=== PATIENT | male | born 1990 | race Caucasian/White ===

== ENCOUNTER 2018-10-15 22:59 | Emergency (ER) | payer OTHER, BC ==
[~2018-10-15] VITALS: Ht 165.1 cm; Wt 113.6 kg
[2018-10-15 23:00] VITALS: BP 161/96
[2018-10-15] MEDS ORDERED: DICL75TA PO (23:54)
--- NOTE | 2018-10-16 07:32 | REP ---
Clinical: Left shoulder injury . Technique: Internal rotation, external rotation, and Y view. Findings: No acute fracture or dislocation. The acromioclavicular and glenohumeral joints are intact. No periarticular calcifications or degenerative changes are appreciated. Sub acromial space is normal. Surrounding soft tissues are unremarkable. Impression: Normal age-appropriate left shoulder radiographs. Electronically Signed by Kade Cloud MD 10/16/2018 07:23 A
== END 2018-10-16 00:08 | disposition home or self-care (01) ==
LOC: M ED 22:59
DX: S46.912A Strain of unspecified muscle, fascia and tendon at shoulder and upper arm level, left arm, initial encounter (principal); W00.0XXA Fall on same level due to ice and snow, initial encounter; Y92.89 Other specified places as the place of occurrence of the external cause; Y99.0 Civilian activity done for income or pay; E11.9 Type 2 diabetes mellitus without complications; F17.210 Nicotine dependence, cigarettes, uncomplicated

== ENCOUNTER 2021-06-24 17:08 | Inpatient (IN) | payer OTHER, SELFPAY ==
[~2021-06-24] VITALS: Ht 167.6 cm; Wt 109.9 kg
[~2021-06-24 17:08] MED LIST: ACET-683 PO; DICL75TA PO; METF500T13
[2021-06-24 18:54] LABS: BASO # 0.1 10^3/uL (0.0-0.2); BASO % 0.5 % (0.0-1.0); EOS % 0.1 % (0.0-3.0); HEMATOCRIT 43.3 % (42.0-52.0); HEMOGLOBIN 15.8 g/dl (13.5-17.5); LYMPH # 1.4 10^3/uL (1.5-5.0); LYMPH % 10.2 % (24.0-44.0); MEAN CORPUSCULAR HEMOGLOBIN 30.4 pg (27.0-33.0); MEAN CORPUSCULAR HGB CONC 36.5 g/dl (32.0-36.5); MEAN CORPUSCULAR VOLUME 83.3 fl (80.0-96.0); MONO # 1.1 10^3/uL (0.0-0.8); MONO % 8.4 % (2.0-8.0); NEUTROPHILS # 10.9 10^3/uL (1.5-8.5); NEUTROPHILS % 80.1 % (36.0-66.0); PLATELET COUNT, AUTOMATED 264 10^3/uL (150-450); WHITE BLOOD COUNT 13.6 10^3/uL (4.0-10.0)
[2021-06-24 19:36] LABS: RSV AMPLIFICATION NEGATIVE (NEGATIVE)
[2021-06-24 21:01] LABS: ALBUMIN 3.4 GM/DL (3.2-5.2); ALT/SGPT 53 U/L (12-78); BILIRUBIN,TOTAL 1.2 MG/DL (0.2-1.0); BLOOD UREA NITROGEN 9 MG/DL (7-18); CALCIUM LEVEL 8.7 MG/DL (8.5-10.1); CARBON DIOXIDE LEVEL 28 MEQ/L (21-32); CHLORIDE LEVEL 92 MEQ/L (98-107); CREATININE FOR GFR 1.03 MG/DL (0.70-1.30); GLOMERULAR FILTRATION RATE > 60.0 (>60); GLUCOSE, FASTING 381 MG/DL (70-100); POTASSIUM SERUM 4.2 MEQ/L (3.5-5.1); SODIUM LEVEL 128 MEQ/L (136-145)
[2021-06-24] MEDS ORDERED: NS 1,000 ML IV ONE ×2 (21:20→23:30)
[2021-06-24 21:38] LABS: ACETONE/KETONE 1.85 MG/DL (<2.81); C REACTIVE PROTEIN QUANTITATIV 9.56 MG/DL (0.00-0.30)
[2021-06-24] MEDS ORDERED: HumaLOG INSULIN (NovoLOG) PER UNIT SC ONE (21:45)
[2021-06-24 21:56] LABS: OSMOLALITY SERUM 286 MOSM/KG (275-295)
[2021-06-24 22:01] LABS: ERYTHROCYTE SEDIMENTATION RATE 15 mm/hr (0-15)
[2021-06-24 22:19] LABS: HEMOGLOBIN A1c 12.5 %
--- NOTE | 2021-06-24 22:45 | REPVR ---
PROCEDURE INFORMATION: Exam: XR Left Foot Exam date and time: 06/24/2021 9:51 PM Age: 30 years old Clinical indication: Pain; Foot; Left; Patient HX: Wound in area of dorsal 3-4 mp joint area; Additional info: Wound infection, diabetes mellitus TECHNIQUE: Imaging protocol: XR Left foot. Views: 3 or more views. COMPARISON: No relevant prior studies available. FINDINGS: Bones/joints: There is a posterior calcaneal spur at the insertion of the Achilles tendon, which is compatible with a left Achilles enthesopathy. There is no fracture, dislocation, or bony destructive changes involving the left foot. The joint spaces and alignment are maintained. No arthropathy is noted. Incidental note is made of a well corticated accessory ossicle lateral to the cuboid, which represents an os peroneum. Soft tissues: There is soft tissue swelling along the dorsal aspect of the left forefoot. No soft tissue gas or radiopaque foreign body is identified in the left foot. IMPRESSION: 1. No radiographic findings to suggest osteomyelitis in the left foot. 2. Soft tissue swelling along the dorsal aspect of the left forefoot. Electronically signed by: Rory Iyer On 06/24/2021 22:45:18 PM
[2021-06-24] MEDS ORDERED: ACETAMINOPHEN 325 MG TAB PO ONE (22:55)
[2021-06-24] MEDS ORDERED: BACTRIM 160MG/800MG DS TAB PO ONE (23:10)
[2021-06-25] MEDS ORDERED: VANCOMYCIN HCL 2,000 MG in IV FLUID PLACE HOLDER 1 EA IV ONE (01:05)
[2021-06-25] MEDS ORDERED: HOME MED LIST COMPLETE! XX SCH (01:10)
[2021-06-25] MEDS ORDERED: MAALOX 30 ML SUSP *UDC PO PRN (01:25)
[2021-06-25] MEDS ORDERED: ACETAMINOPHEN TAB 650MG DOSE (2X325MG) PO PRN (01:25)
[2021-06-25] MEDS ORDERED: MOM 30ML SUSPENSION UDC PO PRN (01:25)
--- NOTE | 2021-06-25 01:28 | HPEPDOC ---
[facility] [place] Date of Admission Jun 25, 2021 Date of Service: Jun 25, 2021 History and Physical CHIEF COMPLAINT: L foot pain and swelling HISTORY OF PRESENT ILLNESS: 30 yo M with with no rib no reported past medical history presented to the ER complaining of a 2-day worsening pain and swelling of his left foot along with an ulcer between the fourth and third toes of the left foot. Patient states that he has been having subjective fevers and chills at home. He attributed the swelling and pain to athlete's foot as he has been working outside and sweating into his boot. Patient is febrile at a fever of 100.2. He is leukocytosis of 13.6. ESR is 15. CRP is 9.56. Patient has blood glucose of 381 with a corrected sodium of 132. Patient has a new diagnosis of diabetes in which he was not aware. X-ray of the foot does not show evidence for osteomyelitis. Venous duplex of the left leg shows no DVT. Blood cultures were drawn and wound culture was obtained. Patient was started on vancomycin and ceftriaxone. Patient be admitted for management of cellulitis and diabetic foot ulcer secondary to undiagnosed diabetes. PAST MEDICAL HISTORY: Undiagnosed type 2 diabetes mellitus PAST SURGICAL HISTORY: No prior reported surgical history SOCIAL HISTORY: Patient denies smoking Patient denies etoh use Patient denies illicit drug use FAMILY HISTORY: Mother: Has diabetes now diet controlled ALLERGIES: Please see below. REVIEW OF SYSTEMS: 10 point ROS conducted, relevant findings are noted in the HPI. HOME MEDICATIONS: Please see below. PHYSICAL EXAMINATION: VITAL SIGNS: please see below General: NAD, comfortable HEENT: PERRLA, EOMI, sclerae clear Neck: supple, normal ROM, no JVD Respiratory: lungs CTAB, no wheeze, no rales, no crackles CVS: RRR, normal S1, S2, no murmurs Abdo: soft, no masses, no hepatosplenomegaly, BS+, no rebound tenderness Extremities: no edema, Morton pedis and posterior tibial pulses are intact 2+ bilaterally. No cyanosis, cap refill less than 2 seconds. MSK: no joint deformities, normal ROM. Shallow wound with slight purulence noted between toes 3 and 4 of the left foot. Surrounding cellulitis demarcated with skin marker. Neuro: no focal neuro deficits, moving all 4 extremities, CN2-12 intact. Strength 5/5 in all 4 extremities. No nystagmus. Psych: calm, cooperative, AAO x 3 LABORATORY DATA: See below. IMAGING: Left foot x-ray on 06/24/2021: 1. No radiographic findings to suggest osteomyelitis in the left foot. 2. Soft tissue swelling along the dorsal aspect of the left forefoot. Venous duplex of the left lower extremity on 06/25/2021: IMPRESSION: No deep vein thrombosis in the veins imaged in the left lower extremity. MICROBIOLOGY: Please see below. ASSESSMENT: Plantar male with undiagnosed type 2 diabetes presents with left foot diabetic ulcer. Vancomycin and ceftriaxone . PLAN: Left foot diabetic ulcer: Foot x-ray does not suggest osteomyelitis. Elevated CRP. Start on vancomycin and ceftriaxone. Skin demarcated with skin marker. Trend of anterior markers. Trend CBC. Type 2 diabetes, uncontrolled: Patient unaware of diagnosis until today. A1c 12.5. Sliding scale before meals and at bedtime. FSBS before meals and at bedtime. Dietitian eval ordered. Diabetic teaching ordered. DVT prophylaxis SCDs and teds. Dispo: Admission expected to last 2 midnights. Vital Signs Vital Signs Date Time Temp Pulse Resp B/P (MAP) Pulse Ox O2 Delivery O2 Flow Rate FiO2 06/24/21 23:08 116 94 06/24/21 21:06 100.2 20 143/70 (94) Room Air Laboratory Data Labs 24H Laboratory Tests 2 06/24/21 18:42: Immature Granulocyte % (Auto) 0.7, Neutrophils (%) (Auto) 80.1H, Lymphocytes (%) (Auto) 10.2L, Monocytes (%) (Auto) 8.4H, Eosinophils (%) (Auto) 0.1, Basophils (%) (Auto) 0.5, Neutrophils # (Auto) 10.9H, Lymphocytes # (Auto) 1.4L, Monocytes # (Auto) 1.1H, Eosinophils # (Auto) 0.0, Basophils # (Auto) 0.1, Nucleated Red Blood Cells % (auto) 0.0, Erythrocyte Sedimentation Rate 15, Anion Gap 8, Glomerular Filtration Rate > 60.0, Estimated Mean Plasma Glucose 312H, Hemoglobin A1c 12.5, Osmolality 286, Calcium Level 8.7, Total Bilirubin 1.2H, Aspartate Amino Transf (AST/SGOT) 34, Alanine Aminotransferase (ALT/SGPT) 53, Alkaline Phosphatase 105, C-Reactive Protein, Quantitative 9.56H, Total Protein 8.0, Albumin 3.4, Albumin/Globulin Ratio 0.7, B-Hydroxybutyrate 1.85, Coronavirus (COVID-19)(PCR) NEGATIVE, Influenza Type A (RT-PCR) NEGATIVE, Influenza Type B (RT-PCR) NEGATIVE, Respiratory Syncytial Virus (PCR) NEGATIVE 06/24/21 21:34: Urine Color YELLOW, Urine Appearance CLEAR, Urine pH 6.0, Urine Specific [place] 1.040, Urine Protein 2+H, Urine Glucose (UA) 3+H, Urine Ketones TRACEH, Urine Blood 1+H, Urine Nitrite NEGATIVE, Urine Bilirubin NEGATIVE, Urine Urobilinogen 0.2, Urine Leukocyte Esterase NEGATIVE, Urine WBC (Auto) 1, Urine RBC (Auto) 2, Urine Hyaline Casts (Auto) 0, Urine Bacteria (Auto) NEGATIVE, Urine Squamous Epithelial Cells 0, Urine Sperm (Auto) 06/24/21 22:37: Bedside Glucose (Misc Panel) 289H 06/24/21 23:22: Bedside Glucose (Misc Panel) 288H 06/25/21 01:22: Bedside Glucose (Misc Panel) 242H CBC/BMP Laboratory Tests 06/24/21 18:42 Microbiology Microbiology 06/24/21 Wound Culture, Received Pending Home Medications No Active Prescriptions or Reported Meds Allergies Coded Allergies: No Known Allergies (Unverified , 10/15/18) A-FIB/CHADSVASC A-FIB History Current/History of A-Fib/PAF?: No EMMANUELLE FRAIRE MD Jun 25, 2021 01:28
[2021-06-25] MEDS ORDERED: GLUCAGON INJ 1MG VIAL SC PRN (01:30)
[2021-06-25] MEDS ORDERED: DEXTROSE 50% 50 ML SYRINGE IV PRN (01:30)
[2021-06-25] MEDS ORDERED: GLUCOSE 4GM CHEW TABLET PO PRN (01:30)
[2021-06-25] MEDS ORDERED: VANCOMYCIN HCL 1,000 MG, VIAL MATE ADAPTER 1 EACH in NS 250 ML IV ONE ×2 (01:30→02:30)
[2021-06-25 02:25] VITALS: BP 134/90
--- NOTE | 2021-06-25 02:29 | REPVR ---
PROCEDURE INFORMATION: Exam: US Duplex Left Lower Extremity Veins, Limited Exam date and time: 06/25/2021 2:14 AM Age: 30 years old Clinical indication: Edema, localized; Lower extremity, left; Additional info: R/O dvt TECHNIQUE: Imaging protocol: Real-time Duplex ultrasound of the Left Lower Extremity with 2-D watson scale, color Doppler flow and spectral waveform analysis with image documentation. Limited exam focused on the left lower extremity veins. COMPARISON: CR Foot, complete LEFT 06/24/2021 9:09 PM FINDINGS: Left deep veins: Unremarkable. The common femoral, femoral, and popliteal veins are patent without thrombus. Normal compressibility, augmentation response and Doppler waveforms. The left femoral vein is duplicated in the left mid to distal thigh. According to the certified ophthalmic technologist's notes, the left calf veins were not well visualized secondary to the patient's body habitus. Left superficial veins: Unremarkable. Saphenofemoral junction is patent without thrombus. Right common femoral vein: The right common femoral vein is patent and demonstrates normal compressibility, normal color Doppler flow, and a normal spectral waveform response to augmentation. Lymph nodes: There is a 2.8 cm x 1.8 cm x 3.4 cm nonspecific left inguinal lymph node. IMPRESSION: No deep vein thrombosis in the veins imaged in the left lower extremity. Electronically signed by: Rory Iyer On 06/25/2021 02:28:51 AM
[2021-06-25] MEDS: cefTRIAXone SOD 1 GM in D5W MINI-BAG PLUS 50 ML IV SCH (04:25)
[2021-06-25 05:55] LABS: BASO # 0.1 10^3/uL (0.0-0.2); BASO % 0.6 % (0.0-1.0); EOS # 0.1 10^3/uL (0.0-0.5); EOS % 1.3 % (0.0-3.0); HEMATOCRIT 39.8 % (42.0-52.0); LYMPH # 1.9 10^3/uL (1.5-5.0); LYMPH % 22.6 % (24.0-44.0); MEAN CORPUSCULAR HEMOGLOBIN 29.6 pg (27.0-33.0); MEAN CORPUSCULAR HGB CONC 34.7 g/dl (32.0-36.5); MEAN CORPUSCULAR VOLUME 85.2 fl (80.0-96.0); MONO % 11.9 % (2.0-8.0); NEUTROPHILS # 5.3 10^3/uL (1.5-8.5); PLATELET COUNT, AUTOMATED 230 10^3/uL (150-450); RED BLOOD COUNT 4.67 10^6/uL (4.30-6.10); WHITE BLOOD COUNT 8.4 10^3/uL (4.0-10.0)
[2021-06-25 06:00] VITALS: BP 130/88
[2021-06-25 06:04] LABS: HEMOGLOBIN 13.8 g/dl (13.5-17.5)
[2021-06-25 06:30] LABS: ALBUMIN 2.7 GM/DL (3.2-5.2); ALT/SGPT 40 U/L (12-78); BILIRUBIN,TOTAL 0.6 MG/DL (0.2-1.0); BLOOD UREA NITROGEN 9 MG/DL (7-18); CALCIUM LEVEL 7.8 MG/DL (8.5-10.1); CARBON DIOXIDE LEVEL 26 MEQ/L (21-32); CHLORIDE LEVEL 99 MEQ/L (98-107); CREATININE FOR GFR 0.71 MG/DL (0.70-1.30); GLOMERULAR FILTRATION RATE > 60.0 (>60); GLUCOSE, FASTING 297 MG/DL (70-100); MAGNESIUM LEVEL 1.6 MG/DL (1.8-2.4); POTASSIUM SERUM 3.7 MEQ/L (3.5-5.1); SODIUM LEVEL 133 MEQ/L (136-145); TOTAL PROTEIN 6.8 GM/DL (6.4-8.2)
[2021-06-25 06:33] LABS: ERYTHROCYTE SEDIMENTATION RATE 57 mm/hr (0-15)
[2021-06-25] MEDS ORDERED: VANCOMYCIN HCL 1,000 MG, VIAL MATE ADAPTER 1 EACH in NS 250 ML IV SCH (09:00)
[2021-06-25] MEDS: HumaLOG INSULIN (NovoLOG) PER UNIT SC SCH ×4 (09:19→21:22)
[2021-06-25] MEDS: VANCOMYCIN HCL 750 MG, VIAL MATE ADAPTER 1 EACH in NS 250 ML IV SCH ×2 (10:09→17:50)
[2021-06-25] MEDS: VANCOMYCIN HCL 500 MG in D5W MINI-BAG PLUS 100 ML IV SCH ×2 (11:19→19:30)
[2021-06-25 14:00] VITALS: BP 143/92
[2021-06-25 21:49] VITALS: BP 126/78
[2021-06-26] MEDS: VANCOMYCIN HCL 1,000 MG, VIAL MATE ADAPTER 1 EACH in NS 250 ML IV SCH ×4 (02:14→20:07)
[2021-06-26] MEDS: cefTRIAXone SOD 1 GM in D5W MINI-BAG PLUS 50 ML IV SCH (04:47)
[2021-06-26 05:15] VITALS: BP 137/65
[2021-06-26] MEDS: HumaLOG INSULIN (NovoLOG) PER UNIT SC SCH ×4 (08:56→20:09)
[2021-06-26] MEDS ORDERED: INFLUENZA QUADRIVALENT PF VACCINE 0.5ML SYRINGE IM ONE (09:00)
[2021-06-26] MEDS ORDERED: LEVEMIR (INSULIN DETEMIR) 1 UNITS/0.01ML SC SCH (09:00)
[2021-06-26 14:00] VITALS: BP 122/78
--- NOTE | 2021-06-26 17:15 | IPNPDOC ---
Text Note Date of Service The patient was seen on 06/26/21. NOTE Subjective: No new acute events overnight Objective: GENERAL APPEARANCE: Obese male HEENT: no scleral icterus, no JVD, EOMI CARDIOVASCULAR: S1S2 LUNGS: Diminished lung sounds bilaterally ABDOMEN: soft & not tender w palpation MUSCULOSKELETAL: no cyanosis, no swelling INTEGUMENT: Shallow wound with slight purulence noted between toes 3 and 4 of the left foot. NEUROLOGICAL: cranial nerve function from 2-12 intact, follows commands, speech not dysarthric Assessment and plan Patient is a 30 years old male with past medical history of obesity presented to hospital with left foot cellulitis. Patient was found to have undiagnosed diabetes Type 2 diabetes Newly diagnosed X-ray negative for osteomyelitis HbA1c 12.5 I will increase the dose of detemir to 20 units twice daily Insulin sliding scale Diabetes education Left foot wound Dr. Mclaughlin drained purulent discharge. He recommended follow-up with him in 7 days Continue antibiotic treatment DVT prophylaxis SCDs and teds VS,Fishbone, I+O VS, Fishbone, I+O Vital Signs Date Time Temp Pulse Resp B/P (MAP) Pulse Ox O2 Delivery O2 Flow Rate FiO2 06/26/21 14:00 97.7 110 18 122/78 (93) 96 Room Air I&O- Last 24 Hours up to 6 AM 06/26/21 06:00 Intake Total 1120 ml Balance 1120 ml AFRICA MURRIETA DO Jun 26, 2021 17:15
[2021-06-26] MEDS: LEVEMIR (INSULIN DETEMIR) 1 UNITS/0.01ML SC SCH (20:21)
--- NOTE | 2021-06-26 21:52 | CR ---
CONSULTATION DATE: 06/26/2021 REASON FOR CONSULTATION: Foot infection. Isaias Ramirez is a 30-year-old male who was admitted to the hospital with worsening pain and swelling to his left foot. He states this started a few days prior to the hospital. He had fever at home, 100.2. He had undiagnosed diabetes prior to hospital admission. Denies prior surgeries. Denies smoking or alcohol use. FAMILY HISTORY: Family history of diabetes on his mother's side. ALLERGIES: No known drug allergies. REVIEW OF SYSTEMS: Subjective fevers at home. Denies nausea, vomiting, fever, or chills. States his foot has been feeling better since admission. VITAL SIGNS: Maximum temperature (T-max) in the last 24 hours 100.2, presently 97.7. LABORATORY DATA: White blood cell count on admission 13.6, most recent 8.4, ESR 15, on admission 57. CRP 10.5. X-rays were taken, negative for osteomyelitis or soft tissue gas. LOWER EXTREMITY EXAMINATION: Erythema from previous demarcated line has been essentially resolved with localized redness to the sulcus of the 3rd and 4th toes. There is trace purulence with tiny abscess formation. ASSESSMENT: A 30-year-old diabetic male with left foot abscess. PLAN: Patient okay to be discharged on oral antibiotics. He is to soak with Epsom salts to draw out remaining fluid. He can have followup with me in office next week.
[2021-06-26 22:00] VITALS: BP 134/93
[2021-06-27] MEDS: VANCOMYCIN HCL 1,000 MG, VIAL MATE ADAPTER 1 EACH in NS 250 ML IV SCH ×3 (01:57→14:00)
[2021-06-27] MEDS: cefTRIAXone SOD 1 GM in D5W MINI-BAG PLUS 50 ML IV SCH (05:09)
[2021-06-27 06:00] VITALS: BP 130/90
[2021-06-27] MEDS: HumaLOG INSULIN (NovoLOG) PER UNIT SC SCH ×2 (09:03→12:11)
[2021-06-27] MEDS: LEVEMIR (INSULIN DETEMIR) 1 UNITS/0.01ML SC SCH (09:04)
[2021-06-27] MEDS ORDERED: ALCOPAD25 TOP (12:11)
[2021-06-27] MEDS ORDERED: INSU1MIS20 SC (12:11)
[2021-06-27] MEDS ORDERED: DOXY-350 PO (12:11)
[2021-06-27] MEDS ORDERED: PEN1MIS21 SC (12:11)
[2021-06-27] MEDS ORDERED: METF-838 PO (12:11)
[2021-06-27] MEDS ORDERED: GLUC1TES2 XX (12:11)
[2021-06-27] MEDS ORDERED: BLOOKIT21 XX (12:11)
[2021-06-27] MEDS ORDERED: LANTINJ4 SC (12:11)
[2021-06-27] MEDS ORDERED: LANC30MI XX (12:11)
[2021-06-27] MEDS ORDERED: INSULADS INJ (13:04)
[2021-06-27 13:42] LABS: BASO # 0.1 10^3/uL (0.0-0.2); BASO % 0.5 % (0.0-1.0); EOS # 0.3 10^3/uL (0.0-0.5); HEMOGLOBIN 14.7 g/dl (13.5-17.5); LYMPH # 1.8 10^3/uL (1.5-5.0); LYMPH % 13.4 % (24.0-44.0); MEAN CORPUSCULAR HEMOGLOBIN 29.5 pg (27.0-33.0); MEAN CORPUSCULAR VOLUME 84.2 fl (80.0-96.0); MONO # 1.1 10^3/uL (0.0-0.8); MONO % 8.5 % (2.0-8.0); NEUTROPHILS # 10.1 10^3/uL (1.5-8.5); NEUTROPHILS % 74.9 % (36.0-66.0); PLATELET COUNT, AUTOMATED 303 10^3/uL (150-450); RED BLOOD COUNT 4.99 10^6/uL (4.30-6.10); WHITE BLOOD COUNT 13.5 10^3/uL (4.0-10.0)
[2021-06-27 14:08] LABS: ALBUMIN 2.9 GM/DL (3.2-5.2); ALT/SGPT 41 U/L (12-78); BILIRUBIN,TOTAL 0.5 MG/DL (0.2-1.0); BLOOD UREA NITROGEN 12 MG/DL (7-18); CALCIUM LEVEL 9.3 MG/DL (8.5-10.1); CARBON DIOXIDE LEVEL 27 MEQ/L (21-32); CHLORIDE LEVEL 103 MEQ/L (98-107); CREATININE FOR GFR 0.72 MG/DL (0.70-1.30); GLOMERULAR FILTRATION RATE > 60.0 (>60); GLUCOSE, FASTING 202 MG/DL (70-100); POTASSIUM SERUM 3.9 MEQ/L (3.5-5.1); SODIUM LEVEL 136 MEQ/L (136-145); TOTAL PROTEIN 7.2 GM/DL (6.4-8.2)
--- NOTE | 2021-06-27 16:01 | DS.PDOC ---
Discharge Summary General Date of Admission Jun 25, 2021 at 01:24 Date of Discharge 06/27/21 Discharge Summary PROCEDURES PERFORMED DURING STAY: [None]. ADMITTING DIAGNOSES: Type 2 diabetes Left foot wound DISCHARGE DIAGNOSES: Type 2 diabetes Left foot wound COMPLICATIONS/CHIEF COMPLAINT: Cellulitis Of Left Foot. New Onset Type2 Diabete. HISTORY OF PRESENT ILLNESS: 30 yo M with with no rib no reported past medical history presented to the ER complaining of a 2-day worsening pain and swelling of his left foot along with an ulcer between the fourth and third toes of the left foot. Patient states that he has been having subjective fevers and chills at home. He attributed the swelling and pain to athlete's foot as he has been working outside and sweating into his boot. Patient is febrile at a fever of 100.2. He is leukocytosis of 13.6. ESR is 15. CRP is 9.56. Patient has blood glucose of 381 with a corrected sodium of 132. Patient has a new diagnosis of diabetes in which he was not aware. X-ray of the foot does not show evidence for osteomyelitis. Venous duplex of the left leg shows no DVT. Blood cultures were drawn and wound culture was obtained. Patient was started on vancomycin and ceftriaxone. Patient be admitted for management of cellulitis and diabetic foot ulcer secondary to undiagnosed diabetes. HOSPITAL COURSE: During the hospital stay patient was diagnosed with type 2 diabetes, his blood sugar level was stabilized with Levemir twice daily and insulin sliding scale. HbA1c 12.6. Dr. Mclaughlin drained purulent discharge. He recommended follow-up with him in 7 days. Patient received antibiotic therapy with positive effect. DISCHARGE MEDICATIONS: Please see below. ALLERGIES: Please see below. PHYSICAL EXAMINATION ON DISCHARGE: VITAL SIGNS: Please see below. GENERAL APPEARANCE: Obese male HEENT: no scleral icterus, no JVD, EOMI CARDIOVASCULAR: S1S2 LUNGS: Diminished lung sounds bilaterally ABDOMEN: soft & not tender w palpation MUSCULOSKELETAL: no cyanosis, no swelling INTEGUMENT: Shallow wound with slight purulence noted between toes 3 and 4 of the left foot. NEUROLOGICAL: cranial nerve function from 2-12 intact, follows commands, speech not dysarthric LABORATORY DATA: Please see below. IMAGING: See above PROGNOSIS: Fair ACTIVITY: [As tolerated]. DIET: Diabetes DISPOSITION: Home, Self-Care. 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 TIME SPENT ON DISCHARGE: 40 minutes. Vital Signs/I&Os Vital Signs Date Time Temp Pulse Resp B/P (MAP) Pulse Ox O2 Delivery O2 Flow Rate FiO2 06/27/21 06:00 97.2 103 90 130/90 (103) 95 Room Air I&O- Last 24 Hours up to 6 AM 06/27/21 06:00 Intake Total 600 ml Balance 600 ml Laboratory Data Labs 24H Laboratory Tests 2 06/26/21 17:16: Bedside Glucose (Misc Panel) 189H 06/26/21 20:05: Bedside Glucose (Misc Panel) 248H 06/27/21 07:23: Bedside Glucose (Misc Panel) 178H 06/27/21 11:46: Bedside Glucose (Misc Panel) 218H 06/27/21 13:26: Immature Granulocyte % (Auto) 0.7, Neutrophils (%) (Auto) 74.9H, Lymphocytes (%) (Auto) 13.4L, Monocytes (%) (Auto) 8.5H, Eosinophils (%) (Auto) 2.0, Basophils (%) (Auto) 0.5, Neutrophils # (Auto) 10.1H, Lymphocytes # (Auto) 1.8, Monocytes # (Auto) 1.1H, Eosinophils # (Auto) 0.3, Basophils # (Auto) 0.1, Nucleated Red Blood Cells % (auto) 0.0, Anion Gap 6L, Glomerular Filtration Rate > 60.0, Calcium Level 9.3#, Total Bilirubin 0.5, Aspartate Amino Transf (AST/SGOT) 20, Alanine Aminotransferase (ALT/SGPT) 41, Alkaline Phosphatase 87, Total Protein 7.2, Albumin 2.9L, Albumin/Globulin Ratio 0.7, Vancomycin Level Trough 12.3 CBC/BMP Laboratory Tests 06/27/21 13:26 FSBS Laboratory Tests Test 06/26/21 17:16 06/26/21 20:05 06/27/21 07:23 06/27/21 11:46 Range/Units Bedside Glucose (Misc Panel) 189 248 178 218 70-105 MG/DL Microbiology Microbiology 06/25/21 Blood Culture - Preliminary, Resulted No Growth after 48 hours. All Specime... 06/25/21 Blood Culture - Preliminary, Resulted No Growth after 48 hours. All Specime... 06/24/21 Wound Culture - Final, Complete Strep Agalactiae Group B Staphylococcus Sp Coag Neg Discharge Medications Scheduled Blood Sugar Diagnostic (Advanced Glucose Test Strips) 1 Each Strip, 1 STRIP XX ASDIRECTED Doxycycline Monohydrate (Doxycycline) 100 Mg Capsule, 1 CAP PO BID Insulin Glargine (Lantus) 100 Unit/1 Ml Vial, 30 UNIT INJ QHS Metformin HCl (Metformin HCl ER) 500 Mg Tab.er.24h, 500 MG PO BID Allergies Coded Allergies: No Known Allergies (Unverified , 10/15/18) AFRICA MURRIETA DO Jun 27, 2021 16:01
== END 2021-06-27 14:44 | disposition home or self-care (01) | DRG 380 ==
LOC: M ED 17:08 → M ED INP 06-25 01:24 → ENRESERV 06-25 01:43 → M MSPAV 06-25 02:29
PROVIDERS: ADMIT Family Medicine; ATTEND Internal Medicine
DX: E11.621 Type 2 diabetes mellitus with foot ulcer (principal); L97.529 Non-pressure chronic ulcer of other part of left foot with unspecified severity